=== PATIENT | male | born 1980 | race Caucasian/White ===

== ENCOUNTER → 2016-08-20 | Outpatient (CLI) | payer BC, MEDICAID ==
[~2016-08-20] MED LIST: ACETAMINOPHEN PO; AMITRIPTYLINE H25 MG; AZOR 10-20 MG1 UDTAB; COLCRYS; DELTASONE20 MG PO; DEPAKOTE; DICLOFENAC PO; ENDOCET; FLEXERIL10 MG; FLEXERIL10 MG PO; GABAPENTIN400 M2 PO; GRALISE300 MG PO; HGH; IBUPROFEN PO; MEDROL4 MG/DOSE-; NAPROSYN-EC500 M1 PO; NAPROSYN500 MG PO; NEXIUM PO; NORCO 7.5-3251 EACH PO; PHENERGAN25 MG PO; PREVACID PO; ROBAXIN 750750 M1 PO; TWYNSTA; TYLENOL #3 PO; ULTRAM PO; VYVANSE20 MG; ZOFRANODT PO
--- NOTE | ~2016-08-20 | MR134 ---
[facility] A Service of [facility] RADIOLOGY TEXT RESULTS PATIENT: ANDREA PARKER LOCATION: [facility] : 84 UNIT #: [id number] AGE: [address]: Benjamín Pino II, MD SEX: M ORDER DR: [id number] [facility] [address] [place], [place] [address] [id number] O MR#: [id number] Acc #: [id number] NAME: ANDREA PARKER. : 1980 SEX: M STUDY DATE/TIME: 08/20/2016 17:34 UNIT: [facility] ROOM: STUDY DESCRIPTION: MR MRA Neck Wo Contrast Attending Physician: Benjamín Pino II., M.D. Referring Physician: Benjamín Pino II., M.D. Ordering Physician: Benjamín Pino II., M.D. Primary Care Physician: Cherie Woods Aprn MRI CENTER REPORT This report is preliminary unless electronic signature is present. 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 Patient has episodes of confusion and dizziness and convulsions. COMMENT MR angiography performed neck vessels without contrast centered at the level of the carotid bifurcations. Comparison is from 11/11/2015. There may be mild plaque at the proximal internal carotid artery on the right versus signal loss due to flow characteristics but by NASCET criteria there is no hemodynamically-significant narrowing at either carotid bifurcation. Both vertebral arteries are patent in their visualized portions. The right is dominant. The proximal vessels are not optimally assessed on a noncontrast study because of motion. IMPRESSION By NASCET criteria there is no hemodynamically-significant narrowing at either carotid bifurcation. Both vertebral arteries are patent in their visualized portions right dominant. Dictated by... Tessa Grimes M.D. THIS IS AN ELECTRONICALLY VERIFIED REPORT Tessa Grimes M.D. at 08/22/2016 10:32 AM Gamal TD: 08/21/2016 22:00 JOB #: [id number] [facility] A Service of [facility] RADIOLOGY TEXT RESULTS PATIENT: ANDREA PARKER [facility] UNIT #: [id number] AGE: [address]: Benjamín Pino II, MD SEX: M ORDER DR: MRI CENTER REPORT Page 1 of 1 COPY
--- NOTE | ~2016-08-20 | MR122 ---
[facility] A Service of [facility] & [facility] RADIOLOGY TEXT RESULTS PATIENT: ANDREA PARKER LOCATION: [facility] : 82 UNIT #: [id number] AGE: [address]: Benjamín Pino II, MD SEX: M ORDER DR: [id number] [facility] [address] [place], [place] [address] [id number] O MR#: [id number] Acc #: [id number] NAME: ANDREA PARKER. : 1980 SEX: M STUDY DATE/TIME: 08/20/2016 17:22 UNIT: [facility] ROOM: STUDY DESCRIPTION: MR MRA Head Wo Contrast Attending Physician: Benjamín Pino II., M.D. Referring Physician: Benjamín Pino II., M.D. Ordering Physician: Benjamín Pino II., M.D. Primary Care Physician: Cherie Woods Aprn MRI CENTER REPORT This report is preliminary unless electronic signature is present. EXAM MR angiogram intracranial. HISTORY Convulsions. 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 Patient has episodes of dizziness and confusion and "convulsion." TECHNIQUE MR angiography performed [place] vasculature. COMPARISON Comparison study is from 11/11/15. 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 There is origin to the right posterior cerebral artery distribution. The right P1 vessel is very hypoplastic. There is no intracranial vascular cutoff or high-grade central stenosis. Please be aware that MR angiography would not be sensitive for subtle changes in vascular caliber associated with vasculitis. There is only subtle narrowing of the distal cavernous internal carotid artery on the right unchanged. IMPRESSION 1. 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 Follow up over the long-term is indicated in this patient since the azygos variant is associated with an increased risk for intracranial aneurysm. At this time, there is no hemodynamically significant stenosis or intracranial vascular cutoff. MR angiography is not sensitive for subtle changes of vasculitis. If this is the clinical question, the diagnosis is best made with conventional angiogram. [facility]. [facility] A Service of [facility] & [facility] RADIOLOGY TEXT RESULTS PATIENT: [id number] [birth year] UNIT #: [id number] AGE: [address]: Benjamín Pino II, MD SEX: M ORDER DR: Dictated by... Tessa Grimes M.D. THIS IS AN ELECTRONICALLY VERIFIED REPORT Tessa Grimes M.D. at 08/22/2016 10:32 AM KAREN/rock TD: 08/21/2016 22:03 JOB #: [id number] MRI CENTER REPORT Page 1 of 1 COPY
== END | disposition home or self-care (01) ==
LOC: CMRI 17:00
DX: R56.9 Unspecified convulsions (principal)
CPT/HCPCS: 70544; 70547

== ENCOUNTER → 2016-09-12 | Outpatient (CLI) | payer BC, MEDICAID ==
--- NOTE | ~2016-09-12 | MR17 ---
[facility] A Service of [facility] & [facility] RADIOLOGY TEXT RESULTS PATIENT: MART PARKER LOCATION: [facility] : 82 UNIT #: [id number] AGE: [address]: DEEPIKA TAYLOR APRN SEX: M ORDER DR: [id number] [facility] [address] [place], [place] [address] [id number] O MR#: [id number] Acc #: [id number] NAME: ANDREA PARKER : 1980 SEX: M STUDY DATE/TIME: 09/12/2016 10:22 UNIT: [facility] ROOM: STUDY DESCRIPTION: MR Brain WWo Contrast Attending Physician: Deepika Taylor Aprn Referring Physician: Deepika Taylor Aprn Ordering Physician: Deepika Taylor Aprn Primary Care Physician: Cherie Woods Aprn MRI CENTER REPORT This report is preliminary unless electronic signature is present. EXAM MRI of the brain with and without HISTORY Arm numbness. History of Behcet's disease with complaint of pressure at the top of his head. Patient has numbness in right arm for 3 weeks. History of seizures for 5 years. Symptoms worsening. No history of cancer. FINDINGS MRI of the brain was performed prior to and following intravenous administration of 17 mL of MultiHance. Comparison 11/11/2015. There is no evidence for a recent ischemic insult on the diffusion series. Midline structures are unremarkable. I believe the distal left vertebral artery is hypoplastic and largely terminates in a PICA. Otherwise the major intracranial flow voids are maintained. There is no extraaxial fluid collection. There is no hydrocephalus. There is only minimal fluid or inflammatory change in the mastoid air cells and a small mucous retention cyst or polyp in the left maxillary sinus but there is no sinus air-fluid level. Castillo-white junction is well-maintained. The ventricles are normal in size and configuration. There is nothing to suggest mesial temporal sclerosis. There is nothing to suggest a castillo matter heterotopia. There is no MRI evidence for intracranial hemorrhage. No extraaxial fluid collection. Following contrast administration, there is no pathologic intracranial enhancement. IMPRESSION Essentially normal MRI of the brain with and without contrast. No discrete seizure focus is identified. If there is an EEG which shows an abnormality, direct correlation suggested. [facility] A Service of [facility] RADIOLOGY TEXT RESULTS PATIENT: MART PARKER LOCATION: [facility] : 82 UNIT #: [id number] AGE: [address]: DEEPIKA TAYLOR APRN SEX: M ORDER DR: Dictated by... Tessa Grimes M.D. THIS IS AN ELECTRONICALLY VERIFIED REPORT Tessa Grimes M.D. at 09/12/2016 4:51 PM Gamal TD: 09/12/2016 14:28 JOB #: [id number] MRI CENTER REPORT Page 1 of 1 COPY
--- NOTE | ~2016-09-12 | CT23 ---
[facility] A Service of [facility] & [facility] RADIOLOGY TEXT RESULTS PATIENT: MART PARKER LOCATION: [facility] : 82 UNIT #: [id number] AGE: [address]: DEEPIKA TAYLOR APRN SEX: M ORDER DR: [id number] [facility] [address] [place], [place] [address] [id number] O MR#: [id number] Acc #: [id number] NAME: ANDREA PARKER : 1980 SEX: M STUDY DATE/TIME: 09/12/2016 9:10 UNIT: [facility] ROOM: STUDY DESCRIPTION: CT Angio Neck Attending Physician: Deepika Taylor Aprn Referring Physician: Deepika Taylor Aprn Ordering Physician: Deepika Taylor Aprn Primary Care Physician: Cherie Woods Aprn MEDICAL IMAGING REPORT This report is preliminary unless electronic signature is present EXAM CT-A neck, 09/12/2016. FINDINGS Please see CT-A head for results. Dictated by... Edson Arshad M.D. THIS IS AN ELECTRONICALLY VERIFIED REPORT Edson Arshad M.D. at 09/12/2016 1:27 PM ITALIA/floridalma TD: 09/12/2016 11:57 JOB #: [id number] MEDICAL IMAGING REPORT Page 1 of 1 COPY
--- NOTE | ~2016-09-12 | CT17 ---
[facility] A Service of [facility] & [facility] RADIOLOGY TEXT RESULTS PATIENT: MART PARKER LOCATION: [facility] : 82 UNIT #: [id number] AGE: [address]: DEEPIKA TAYLOR APRN SEX: M ORDER DR: [id number] [facility] [address] [place], [place] [address] [id number] O MR#: [id number] Acc #: [id number] NAME: ANDREA PARKER. : 1980 SEX: M STUDY DATE/TIME: 09/12/2016 9:10 UNIT: [facility] ROOM: STUDY DESCRIPTION: CT Angio Head Attending Physician: Deepika Taylor Aprn Referring Physician: Deepika Taylor Aprn Ordering Physician: Deepika Taylor Aprn Primary Care Physician: Cherie Woods Aprn MEDICAL IMAGING REPORT This report is preliminary unless electronic signature is present EXAM CT scan of the head and neck with contrast with carotid CT angiography HISTORY Right arm numbness for the past 3 weeks. History of seizures, confusion, headaches, and pressure in the head over the past year. TECHNIQUE Thin section imaging was obtained from the mid mediastinum to the top of head with contrast. 100 mL of Isovue was used. CT angiography was performed with thick sliding MIPs, curved planar reformats, and 3-D volumetric imaging with surface-shaded and volume- shaded display. This CT exam was performed with one or more of the following radiation dose reduction techniques: automatic exposure control, adjustment of mA and/or kV according to patient size, and iterative reconstruction. FINDINGS Extravascular structures are remarkable for paraseptal emphysema at the lung apices. The CT angiographic study is normal. There is no evidence of dissection, atherosclerotic disease, or occlusive disease. In the posterior circulation, the right vertebral artery is dominant and terminates in the basilar artery while the left vertebral is small and terminates in an AICA/PICA complex as a normal variant. In the intracranial circulation, there is no evidence of aneurysm, vascular malformation, or major branch vessel occlusion. No severe intracranial stenosis is seen. 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 This normal variant is associated with an increased incidence of aneurysms at branch vessels, but no aneurysms are seen. Consider routine surveillance MR angiography every few years to reassess this. Also noted as a normal variant is origin of the right posterior cerebral artery. [facility] A Service of [facility] & [facility] RADIOLOGY TEXT RESULTS PATIENT: MART PARKER LOCATION: [facility] : 84 UNIT #: [id number] AGE: [address]: DEEPIKA TAYLOR APRN SEX: M ORDER DR: IMPRESSION 1. No evidence of stenosis, occlusive disease, or dissection. Essentially negative CT angiogram. 2. Anatomic variance, as described above, the most significant of which is an azygos configuration to the A2 segment. Consider surveillance MR angiography over several years to check for development of aneurysms. This configuration is associated with an increased incidence of aneurysms in the anterior cerebral artery distribution. 3. Emphysematous changes at the lung apices. Dictated by... Edson Arshad M.D. THIS IS AN ELECTRONICALLY VERIFIED REPORT Edson Arshad M.D. at 09/12/2016 1:27 PM ITALIA/floridalma TD: 09/12/2016 11:55 JOB #: [id number] MEDICAL IMAGING REPORT Page 1 of 1 COPY
[2016-09-12 08:50] LABS: POC - CREATININE 0.81 mg/dL (0.64-1.27); POC - GFR >60.0 mL/min (>60)
== END | disposition home or self-care (01) ==
LOC: CCAT 08:09
PROVIDERS: Nurse Practitioner Family
DX: R20.0 Anesthesia of skin (principal); R25.1 Tremor, unspecified
CPT/HCPCS: 70496; 70498; 70553; 82565; A9577; Q9967